=== PATIENT | male | born 2000 | race Two or more races ===

== ENCOUNTER 2025-06-23 18:56 | Emergency (ER) | payer MEDICAID, OTHER ==
[~2025-06-23] VITALS: Ht 172.7 cm; Wt 75.5 kg
[2025-06-23] MEDS ORDERED: ACET500T58 PO (19:13)
--- NOTE | 2025-06-23 19:13 | ED.PDOC ---
Musculoskeletal HPI Comments 25-year-old male presents to ER with complaints of right foot pain x three days. Patient reports that a metal pipe landed on his right foot three days ago and has since been experiencing pain/bruising to right foot. He rates his current pain a 5/10 to right foot without radiation and denies use of medications for current symptoms. Patient presents to ER ambulatory on arrival, with steady gait, in no distress. Denies numbness/tingling, right ankle pain, further skin changes or any further symptoms/complaints Chief Complaint: Lower Extremity Time Seen by MD: 18:58 Primary Care Provider: UNKNOWN Reviewed Notes: Nurses Notes, Medications, Allergies Allergies: Coded Allergies: NO KNOWN ALLERGIES (Unverified , 06/23/25) Home Meds Active Scripts Acetaminophen (Acetaminophen) 500 Mg Tab, 500 MG PO Q4HPRN, #30 TAB 0 Refills Prov:THALIA INGRAM 06/23/25 Information Source: Patient Mode of Arrival: Ambulatory Past Medical History PAST MEDICAL HISTORY: Denies Surgical History: Denies all surgeries Family History Family History: Unknown Social History Smoker: Non-Smoker Alcohol: Denies ETOH Use Drugs: Denies Drug Use Lives In: Home Constitutional: denies: chills, diaphoresis, fatigue, fever, malaise, sweats, weakness, others EENTM: denies: blurred vision, double vision, ear bleeding, ear discharge, ear drainage, ear pain, ear ringing, eye pain, eye redness, hearing loss, mouth pain, mouth swelling, nasal discharge, nose bleeding, nose congestion, nose pain, photophobia, tearing, throat pain, throat swelling, voice changes, others Respiratory: denies: cough, hemoptysis, orthopnea, SOB at rest, shortness of breath, SOB with excertion, stridor, wheezing, others Cardiovascular: denies: chest pain, dizzy spells, diaphoresis, Dyspnea on exertion, edema, irregular heart beat, left arm pain, lightheadedness, palpitations, PND, syncope, others Gastrointestinal: denies: abdomen distended, abdominal pain, blood streaked bowels, constipated, diarrhea, dysphagia, difficulty swallowing, hematemesis, melena, nausea, poor appetite, poor fluid intake, rectal bleeding, rectal pain, vomiting, others Genitourinary: denies: burning, dysuria, flank pain, frequency, hematuria, incontinence, penile discharge, penile sore, pain, testicle pain, testicle swelling, urgency, others Neurological: denies: dizziness, fainting, headache, left sided numbness, left sided weakness, numbness, paresthesia, pre-existing deficit, right sided numbness, right sided weakness, seizure, speech problems, tingling, tremors, weakness, others Musculoskeletal: reports: others (As stated in HPI) Integumetry: reports: others (As stated in HPI) Allergic/Immunocompromised: denies: Difficulty Healing, Frequent Infections, Hives, Itching, others Hematologic/Lymphatic: denies: anemia, blood clots, easy bleeding, easy bruising, swollen glands, others Endocrine: denies: excessive hunger, excessive sweating, excessive thirst, excessive urination, flushing, intolerance to cold, intolerance to heat, unexplained weight gain, unexplained weight loss, others Psychiatric: denies: anxiety, bipolar disorder, depression, hopeless, panic disorder, schizophrenia, sleepless, suicidal, others Physical Exam General Appearance: No Apparent Distress HEENT: PERRL/EOMI Neck: Full Range of Motion, Non-Tender, Normal Respiratory: Chest Non-Tender, Lungs Clear, No Accessory Muscle Use, No Respiratory Distress, Normal Breath Sounds Cardiovascular: No Murmur, No Gallop, Regular Rate/Rhythm Breast Exam: Deferred Gastrointestinal: NOT DONE Genitalia: Deferred Pelvic: Deferred Rectal: Deferred Extremities: No calf tenderness, Normal capillary refill, Normal range of motion Musculoskeletal : Extremity Location: Foot (TTP/mild ecchymosis noted to medial aspect of right foot and to right 1st through 3rd toes. No deformity/erythema/further sk in changes noted. Pulses intact. Gait intact without abnormality) Neurologic: Alert, No Motor Deficits, Normal Affect, Normal Mood, No Sensory Deficits Cerebellar Function: Normal Reflexes: Normal Skin: Dry, Warm Peripheral Pulses: 2+ dorsalis pedis (R), 2+ dorsalis pedis (L), 2+ Radial (R), 2+ Radial (L), 2+ Brachial (R), 2+ Brachial (L) Lymphatic: No Adenopathy Was a procedure done? Was a procedure done?: No Sedation Sedation?: No Differential Diagnosis EXT Differential Diagnosis: Fracture, Dislocation, Neurovascular injury X-Ray, Labs, Meds, VS Vital Signs Date Time Temp Pulse Resp B/P (MAP) Pulse Ox O2 Delivery O2 Flow Rate FiO2 06/23/25 18:58 98.0 79 16 135/92 95 98.0 PATIENT: TAMMY TODDT: [id number] UNIT: [id number] : 2000 LOC: ER ROOM / BED: / AGE / SEX: 25 / M ADM STATUS: REG ER SERVICE 02 ORDERING PHYSICIAN: THALIA INGRAM PROCEDURE(s): RFOOT - R FOOT 3 VIEW XRAY REASON: r/o fx ORDER NUMBER(s): [id number], ACCESSION NUMBER(s): [id number] CLINICAL INDICATION: r/o fx. Pain. TECHNIQUE: XYXY R FOOT 3 VIEW XRAY Comparison: None FINDINGS/IMPRESSION: : There is no evidence of acute fracture or dislocation. Soft tissues are unremarkable. ATED BY: SEAN BERTRAND MD DICTATED DATE/TIME: 06/23/251923 SIGNED BY: SEAN BERTRAND MD SIGNED DATE/TIME: 06/23/251923 CC: Right foot x-ray reviewed Advised on elevation and alternate ice on/off as needed for pain Advised to follow up with PCP in 1-2 days Patient verbalized understanding and agreeable with current plan of care Advised to return to ER immediately if symptoms worsen Images Reviewed?: Images reviewed and evaluated by me Time of 1ST Reevaluation: 18:54 Reevaluation 1ST: N/A Patient Education/Counseling: Diagnosis, Treatment, Prognosis, Need For Follow Up Family Education/Counseling: No Family Present Departure 1 Departure Time of Disposition: 19:12 Impression: Primary Impression: Contusion of right foot Qualified Codes: S90.31XA - Contusion of right foot, initial encounter Disposition: HOME / SELF CARE / HOMELESS Condition: Stable e-Prescriptions Acetaminophen (Acetaminophen) 500 Mg Tab 500 MG PO Q4HPRN, #30 TAB 0 Refills Prov: THALIA INGRAM 06/23/25 Discharged With: Self Critical Care Note Critical Care Time?: No Stability Stability form required: No Heart Score Heart Score: Heart Score Response (Comments) Value History N/A 0 EKG N/A 0 Age N/A 0 Risk Factors N/A 0 Troponin N/A 0 Total 0 THALIA INGRAM Jun 23, 2025 19:13
--- NOTE | 2025-06-23 19:27 | DVH ---
CLINICAL INDICATION: r/o fx. Pain. TECHNIQUE: XYXY R FOOT 3 VIEW XRAY Comparison: None FINDINGS/IMPRESSION: : There is no evidence of acute fracture or dislocation. Soft tissues are unremarkable.
[2025-06-23 19:47] VITALS: BP 123/74; RESP 14; TEMP 97.4
[2025-06-23 19:49] VITALS: PULSE 75; O2SAT 95
== END 2025-06-23 19:57 | disposition home or self-care (01) ==
LOC: ER 18:56
DX: S90.31XA Contusion of right foot, initial encounter (principal); X58.XXXA Exposure to other specified factors, initial encounter; Y93.89 Activity, other specified; Y92.89 Other specified places as the place of occurrence of the external cause; Y99.8 Other external cause status
CPT/HCPCS: 73630